=== PATIENT | male | born 1940 | race Caucasian/White ===

== ENCOUNTER → 2016-07-04 | Outpatient (CLI) | payer MEDICARE, BC ==
[~2016-07-04] MED LIST: ASPI1TAB69 PO; ASPI81TA17 PO; ATOR20TA PO; ATOR20TA15 PO; CENTTAB20 PO; CLAR10CA3 PO; CLAR10TA7 PO; COLA100C3 PO; COLA50CA PO; CYMB30CA PO; FINA5TAB77 PO; FURO1TAB60 PO; GABA800T PO; HYDR12.56 PO; HYDR12.57 PO; LATA0.00 EACH EYE; LATA0.002 EACH EYE; LISI-357 PO; LISI-519 PO; METO50TA PO; MONT10TA2 PO; MORP1TAB26 PO; MORP60TA20 PO; MULT-6 PO; NEUR400C PO; OXYC-395 PO; OXYC10TA8 PO; PROS5TAB PO; SAW500CA6 PO; SAW500CA7 PO; SENO8.6T5 PO; SENO8.6T6 PO; TAMS0.4C67 PO; TAMS5CAP PO; ZOLP10TA3 PO
[2016-07-04 09:48] LABS: BICARBONATE 28.1 MEQ/L (21.0-32.0); HDL CHOLESTEROL 31.7 MG/DL (40.0-60.0); POTASSIUM 3.7 MEQ/L (3.5-5.1)
== END ==
LOC: PLAB 06:58
PROVIDERS: ATTEND Internal Medicine Interventional Cardiology
DX: I25.118 Atherosclerotic heart disease of native coronary artery with other forms of angina pectoris (principal); I48.3 Typical atrial flutter; R60.0 Localized edema; E78.00 Pure hypercholesterolemia, unspecified; C61 Malignant neoplasm of prostate
CPT/HCPCS: 36415; 80048; 80061; 84153; 84450; 84460

== ENCOUNTER → 2016-07-18 | Outpatient (CLI) | payer MEDICARE, BC ==
[~2016-07-18] MED LIST changes: -ASPI81TA17 PO; -ATOR20TA PO; -CENTTAB20 PO; -CLAR10TA7 PO; -COLA50CA PO; -FINA5TAB77 PO; -HYDR12.56 PO; -HYDR12.57 PO; -LATA0.00 EACH EYE; -LISI-357 PO; -MORP60TA20 PO; -NEUR400C PO; -OXYC10TA8 PO; -SAW500CA6 PO; -SENO8.6T6 PO; -TAMS0.4C67 PO; -ZOLP10TA3 PO
[2016-07-18 09:12] LABS: MEAN CELL VOLUME 96.3 FL (80.0-100.0); MEAN CORPUSCULAR HEMOGLOBIN 32.9 PG (27.0-34.0); MEAN CORPUSCULAR HGB CONC 34.2 % (32.0-36.0); PLATELET COUNT 192 TH/MM3 (150-450); RED BLOOD COUNT 3.63 MIL/MM3 (4.50-5.90); REVIEW FLAG FINAL; WHITE BLOOD COUNT 6.1 TH/MM3 (4.0-11.0)
[2016-07-18 09:37] LABS: BICARBONATE 28.8 MEQ/L (21.0-32.0); POTASSIUM 3.8 MEQ/L (3.5-5.1)
== END ==
LOC: PLAB 06:40
PROVIDERS: ATTEND Internal Medicine Interventional Cardiology
DX: I25.118 Atherosclerotic heart disease of native coronary artery with other forms of angina pectoris (principal); E78.00 Pure hypercholesterolemia, unspecified; R55 Syncope and collapse
CPT/HCPCS: 36415; 80048; 85027

== ENCOUNTER → 2017-05-21 | Outpatient (CLI) | payer MEDICARE, BC ==
[2017-05-21 09:14] LABS: AUTOMATED NEUTROPHIL # 4.2 TH/MM3 (1.8-7.7); BASOPHIL # 0.1 TH/MM3 (0-0.2); BASOPHIL % 0.8 % (0.0-2.0); EOSINOPHIL # 0.2 TH/MM3 (0-0.4); EOSINOPHIL % 2.4 % (0.0-4.0); HEMATOCRIT 36.6 % (39.0-51.0); HEMO FLAGS DIFF FINAL; LYMPH % 35.4 % (9.0-44.0); LYMPHOCYTE # 2.9 TH/MM3 (1.0-4.8); MEAN CELL VOLUME 96.3 FL (80.0-100.0); MEAN CORPUSCULAR HEMOGLOBIN 33.3 PG (27.0-34.0); MEAN CORPUSCULAR HGB CONC 34.6 % (32.0-36.0); NEUT % 50.4 % (16.0-70.0); PLATELET COUNT 203 TH/MM3 (150-450); RED CELL DISTRIBUTION WIDTH 13.5 % (11.6-17.2); WHITE BLOOD COUNT 8.3 TH/MM3 (4.0-11.0)
[2017-05-21 09:30] LABS: BLOOD, URINE NEG (NEG); GLUCOSE,URINE NEG (NEG); KETONE, URINE NEG (NEG); NITRITE,URINE NEG (NEG); SQUAMOUS EPITHELIAL CELL URINE <1 /hpf (0-5); URINE COLOR LIGHT-YELLOW (YELLW/STRAW)
[2017-05-21 09:50] LABS: ANION GAP 6 MEQ/L (5-15); AST (GOT) 17 U/L (15-37); BICARBONATE 29.4 MEQ/L (21.0-32.0); BLOOD UREA NITROGEN 23 MG/DL (7-18); CHLORIDE 105 MEQ/L (98-107); GLOMERULAR FILTRATION RATE 57 ML/MIN (>89); GLUCOSE,FASTING 162 MG/DL (74-99); POTASSIUM 4.1 MEQ/L (3.5-5.1); SODIUM (NA) 140 MEQ/L (136-145)
[2017-05-21 10:04] LABS: ALKALINE PHOSPHATASE 94 U/L (45-117); ALT (GPT) 32 U/L (12-78); HDL CHOLESTEROL 38.5 MG/DL (40.0-60.0); LDL CHOLESTEROL 27 MG/DL (0-99); TOTAL BILIRUBIN ADULT 0.6 MG/DL (0.2-1.0)
== END ==
LOC: PLAB 07:47
PROVIDERS: ATTEND General Practice
DX: E78.00 Pure hypercholesterolemia, unspecified (principal); I10 Essential (primary) hypertension
CPT/HCPCS: 36415; 80053; 80061; 81001; 84443; 85025

== ENCOUNTER → 2017-09-10 | Outpatient (CLI) | payer MEDICARE, BC ==
[2017-09-10 13:29] LABS: FREE T3 2.86 PG/ML (2.18-3.98); FREE T4 1.1 NG/DL (0.76-1.46)
[2017-09-11 17:51] LABS: THYROID PEROX AB (MICROSOMAL) LESS THAN 1 IU/mL (<9)
[2017-09-11 23:52] LABS: THYROGLOB ABS LESS THAN 1 IU/mL (< OR = 1)
== END ==
LOC: PLAB 06:54
DX: E04.2 Nontoxic multinodular goiter (principal); E06.9 Thyroiditis, unspecified; E06.5 Other chronic thyroiditis
CPT/HCPCS: 84432; 84439; 84481; 86376; 86800

== ENCOUNTER 2017-09-11 12:27 | Day surgery (SDC) | payer MEDICARE, BC ==
[2017-09-11 13:16] VITALS: BP 135/70; PULSE 60; RESP 16; TEMP 98; O2SAT 95
[2017-09-11 15:30] VITALS: BP_SYST 142; BP_SYST 169; BP_DIAS 69; BP_DIAS 70; PULSE 57; PULSE 61; RESP 18; RESP 20; TEMP 98; TEMP 98.1; O2SAT 96
[2017-09-11 15:59] VITALS: BP 145/69; PULSE 52; RESP 18; TEMP 97.5; O2SAT 95
[2017-09-11] MEDS ORDERED: LIDOCAINE HCL 1% PF 10 ML VIAL ONE (16:16)
--- NOTE | 2017-09-11 17:03 | RADRPT ---
EXAM DATE/TIME: 09/11/2017 14:32 [place] COMPARISON: No previous studies available for comparison. EXTERNAL COMPARISON: [facility], [place] [id number] THYROID UPTAKE AND SCAN, Sep 07 2017, US THYROID, July 20, 2017. INDICATIONS : Enlarged left thyroid nodule. MEDICAL HISTORY : Carcinoma, prostate. Hypercholesterolemia. Glaucoma. Early cataracts. TIA x2. Ventricular failure. H TN. Coronary artery disease. Afib. Asthma. Pneumonia. Hiatal hernia. GERD. Degenerative disc disease. SURGICAL HISTORY : Tonsillectomy. Detached retina repair. Cardiac ablation. Cardiac cath. Bilateral inguinal repair. R adiation therapy. Bilateral knee arthroscopy. Left carpel tunnel release. Radiation therapy. Chemothe rapy. Blood transfusions. ENCOUNTER: Initial ACUITY: 2 months PAIN SCORE: 3/10 LOCATION: Left neck ORGAN: Left thyroid lobe SPECIMENS: Four fine needle aspirate(s) submitted for pathologic evaluation. DEVICE: 22 gauge needle Post procedure scanning reveals no hematoma or other complication. The possibility does exist that the tissue obtained will be non-diagnostic. If the sample is non-valentina gnostic a repeat biopsy or surgical biopsy may need to be performed. TECHNIQUE: 1. Ultrasound guidance for needle biopsy. 2. Needle biopsy. The risks, benefits and alternatives to the procedure were explained and verbal and written consent w as obtained. The site was prepped in sterile fashion. Full sterile technique was used, including ca p, mask, sterile gloves and gown and a large sterile sheet. Hand hygiene and 2% chlorhexidine and/or betadine/alcohol prep was utilized per protocol for cutaneous antisepsis. The skin and subcutaneous tissues were infiltrated with local anesthetic solution. Sterile gel and sterile probe cover were u tilized for ultrasound guidance. With the patient on the ultrasound table, images were obtained. A needle was advanced into the identified target and the number of specimens as above obtained and fernandez bmitted for pathologic evaluation. The patient tolerated the procedure well and left the ultrasound suite in stable condition. CONCLUSION: 1. Uncomplicated ultrasound guided needle biopsy. Note: Initial interpretation of the slide preparations was consistent with marginal sample. This was discussed with the patient who wishes to defer repeat biopsy at this time until final results are iza ilable. Valerio Crawford MD on September 11, 2017 at 16:59 Board Certified Radiologist. This report was verified electronically.
== END 2017-09-11 16:05 | disposition home or self-care (01) ==
LOC: HRAD 12:27 → HRIP 12:30 → HRAD 16:05
PROVIDERS: ATTEND Radiology Diagnostic Radiology
DX: E04.1 Nontoxic single thyroid nodule (principal); I10 Essential (primary) hypertension; I48.91 Unspecified atrial fibrillation; J45.909 Unspecified asthma, uncomplicated; Z85.46 Personal history of malignant neoplasm of prostate; Z86.73 Personal history of transient ischemic attack (TIA), and cerebral infarction without residual deficits
CPT/HCPCS: 10022; 76942; 88172; 88173